=== PATIENT | male | born 1940 | race Caucasian/White ===

== ENCOUNTER 2020-02-04 00:28 | Emergency (ER) | payer MEDICARE, MEDICAID ==
[~2020-02-04] VITALS: Ht 172.7 cm; Wt 105.2 kg
[~2020-02-04 00:28] MED LIST: AMA100C PO; ASPI-611 PO; ATOR20TA PO; CARBIDOPA/LEVODOPA; ESCI20TA29 PO; FAMO-1 PO; FLO0.4C PO; FLUT16SP2 NS; ISOS30TA9 PO; LEVO75TA57 PO; METF500T PO; NITR0.4T51 SL; VITC500T PO; [UNRECOGNIZED DRUG - CODE] PO
[2020-02-04 02:12] LABS: BASOPHILS % (AUTO) 0.7 % (0-1); EOSINOPHILS # (AUTO) 0.3 X10'3 (0-0.9); EOSINOPHILS % (AUTO) 4.4 % (0-6); HEMOGLOBIN 13.3 g/dl (14.0-17.9); LYMPHOCYTES # (AUTO) 1.5 X10'3 (1.1-4.8); LYMPHOCYTES % (AUTO) 22.2 % (21-51); MEAN CORPUSCULAR HEMOGLOBIN 30.5 PG (27.0-31.0); MEAN CORPUSCULAR HGB CONC 34.2 g/dL (33.0-36.5); MEAN CORPUSCULAR VOLUME 89.2 FL (78-98); MEAN PLATELET VOLUME 9.3 FL (7.4-10.4); MONOCYTES # (AUTO) 0.4 X10'3 (0-0.9); MONOCYTES % (AUTO) 6.4 % (2-12); NEUTROPHILS # (AUTO) 4.6 X10'3 (1.8-7.7); NEUTROPHILS % (AUTO) 66.3 % (42-75); PLATELET COUNT 179 X10'3 (140-440); RED BLOOD COUNT 4.38 X10'6 (4.70-6.10); WHITE BLOOD COUNT 6.9 X10'3 (4.5-11.0)
[2020-02-04 02:19] LABS: ALANINE AMINOTRANSFERASE 51 U/L (12-78); ALBUMIN 3.1 G/DL (3.4-5.0); ALBUMIN/GLOBULIN RATIO 0.9 (1.1-1.5); ALKALINE PHOSPHATASE 90 IU/L (46-116); ANION GAP 11 (8-16); ASPARTATE AMINO TRANSFERASE 25 U/L (10-37); BILIRUBIN,TOTAL 0.3 MG/DL (0.1-1.0); BLOOD UREA NITROGEN 12 MG/DL (7-18); BUN/CREATININE RATIO 13.5 (5.4-32.0); CALCIUM 8.6 MG/DL (8.5-10.1); CHLORIDE 107 MMOL/L (99-107); CREATININE 0.89 MG/DL (0.60-1.10); GLUCOSE 142 MG/DL (70-104); POTASSIUM 3.5 MMOL/L (3.5-5.1); SODIUM 141 MMOL/L (135-145); TOTAL CARBON DIOXIDE 23.2 MMOL/L (24-32); TOTAL PROTEIN 6.5 G/DL (6.4-8.2); eGFR 83 ML/MIN
[2020-02-04 02:58] VITALS: BP 131/72
== END 2020-02-04 03:16 | disposition home or self-care (01) ==
LOC: ER 00:29
DX: R42 Dizziness and giddiness (principal); G20 Parkinson's disease; I48.91 Unspecified atrial fibrillation; E11.9 Type 2 diabetes mellitus without complications; E03.9 Hypothyroidism, unspecified; F41.9 Anxiety disorder, unspecified; F20.9 Schizophrenia, unspecified; Z98.890 Other specified postprocedural states; Z88.8 Allergy status to other drugs, medicaments and biological substances; Z79.82 Long term (current) use of aspirin; Z79.899 Other long term (current) drug therapy
CPT/HCPCS: 36415; 80053; 84484; 85025; 93005; 99284

== ENCOUNTER 2021-02-25 05:52 | Emergency (ER) | payer MEDICARE, MEDICAID ==
[~2021-02-25] VITALS: Ht 172.7 cm; Wt 98.4 kg
[2021-02-25 06:11] VITALS: BP 140/70
[2021-02-25 08:15] LABS: BASOPHILS % (AUTO) 0.4 % (0-1); EOSINOPHILS # (AUTO) 0.1 X10'3 (0-0.9); EOSINOPHILS % (AUTO) 1.6 % (0-6); HEMATOCRIT 42.4 % (42.0-52.0); HEMOGLOBIN 14.7 g/dl (14.0-17.9); LYMPHOCYTES # (AUTO) 1.5 X10'3 (1.1-4.8); LYMPHOCYTES % (AUTO) 20.8 % (21-51); MEAN CORPUSCULAR HEMOGLOBIN 31.1 PG (27.0-31.0); MEAN CORPUSCULAR HGB CONC 34.6 g/dL (33.0-36.5); MEAN CORPUSCULAR VOLUME 89.8 FL (78-98); MEAN PLATELET VOLUME 8.4 FL (7.4-10.4); MONOCYTES # (AUTO) 0.5 X10'3 (0-0.9); MONOCYTES % (AUTO) 7.3 % (2-12); NEUTROPHILS # (AUTO) 5.1 X10'3 (1.8-7.7); NEUTROPHILS % (AUTO) 69.9 % (42-75); PLATELET COUNT 177 X10'3 (140-440); RED BLOOD COUNT 4.72 X10'6 (4.70-6.10); RED CELL DISTRIBUTION WIDTH 15.4 % (11.5-14.5); WHITE BLOOD COUNT 7.3 X10'3 (4.5-11.0)
[2021-02-25 08:29] LABS: ALANINE AMINOTRANSFERASE 32 U/L (12-78); ALBUMIN 3.5 G/DL (3.4-5.0); ALBUMIN/GLOBULIN RATIO 0.9 (1.1-1.5); ALKALINE PHOSPHATASE 94 IU/L (46-116); ANION GAP 8 (8-16); ASPARTATE AMINO TRANSFERASE 23 U/L (10-37); BILIRUBIN,TOTAL 0.5 MG/DL (0.1-1.0); BLOOD UREA NITROGEN 20 MG/DL (7-18); BUN/CREATININE RATIO 22.7 (5.4-32.0); CALCIUM 9.9 MG/DL (8.5-10.1); CHLORIDE 108 MMOL/L (99-107); CREATININE 0.88 MG/DL (0.60-1.10); GLUCOSE 108 MG/DL (70-104); POTASSIUM 4.3 MMOL/L (3.5-5.1); SODIUM 144 MMOL/L (135-145); TOTAL CARBON DIOXIDE 28.1 MMOL/L (24-32); TOTAL PROTEIN 7.3 G/DL (6.4-8.2); eGFR 84 ML/MIN
[2021-02-25 09:26] LABS: TOTAL CELLS COUNTED 100
[2021-02-25 09:27] LABS: ANISOCYTOSIS FEW; PLATELET ESTIMATE NORMAL; POIKILOCYTOSIS FEW
[2021-02-25] MEDS ORDERED: ESOM40CA49 PO (17:53)
[2021-02-25] MEDS ORDERED: PROC-8 PO (17:53)
== END 2021-02-25 13:09 | disposition left against medical advice (07) ==
LOC: ER 05:54
DX: R07.9 Chest pain, unspecified (principal); Z53.21 Procedure and treatment not carried out due to patient leaving prior to being seen by health care provider
CPT/HCPCS: 36415; 71045; 80053; 83880; 84484; 85007; 85025; 93005

== ENCOUNTER 2021-02-25 16:27 | Emergency (ER) | payer MEDICARE, MEDICAID ==
[~2021-02-25] VITALS: Ht 172.7 cm; Wt 98.6 kg
[2021-02-25] MEDS ORDERED: ondansetron 4mg rapidly disintigrating tab PO ONE (16:45)
[2021-02-25] MEDS ORDERED: pantoprazole 40mg Tablet.DR PO ONE (16:45)
[2021-02-25 17:06] VITALS: BP 144/73
[2021-02-25 17:14] LABS: BASOPHILS % (AUTO) 0.5 % (0-1); EOSINOPHILS # (AUTO) 0.1 X10'3 (0-0.9); EOSINOPHILS % (AUTO) 1.5 % (0-6); HEMATOCRIT 42.6 % (42.0-52.0); HEMOGLOBIN 15.1 g/dl (14.0-17.9); LYMPHOCYTES # (AUTO) 1.9 X10'3 (1.1-4.8); LYMPHOCYTES % (AUTO) 24.2 % (21-51); MEAN CORPUSCULAR HEMOGLOBIN 31.5 PG (27.0-31.0); MEAN CORPUSCULAR HGB CONC 35.3 g/dL (33.0-36.5); MEAN CORPUSCULAR VOLUME 89.2 FL (78-98); MEAN PLATELET VOLUME 8.4 FL (7.4-10.4); MONOCYTES # (AUTO) 0.5 X10'3 (0-0.9); MONOCYTES % (AUTO) 6.8 % (2-12); NEUTROPHILS # (AUTO) 5.2 X10'3 (1.8-7.7); PLATELET COUNT 195 X10'3 (140-440); RED BLOOD COUNT 4.78 X10'6 (4.70-6.10); RED CELL DISTRIBUTION WIDTH 15.6 % (11.5-14.5); WHITE BLOOD COUNT 7.8 X10'3 (4.5-11.0)
[2021-02-25 17:23] LABS: ALANINE AMINOTRANSFERASE 32 U/L (12-78); ALBUMIN 3.4 G/DL (3.4-5.0); ALBUMIN/GLOBULIN RATIO 0.9 (1.1-1.5); ALKALINE PHOSPHATASE 104 IU/L (46-116); ANION GAP 8 (8-16); ASPARTATE AMINO TRANSFERASE 16 U/L (10-37); BILIRUBIN,TOTAL 0.4 MG/DL (0.1-1.0); BLOOD UREA NITROGEN 17 MG/DL (7-18); BUN/CREATININE RATIO 20.5 (5.4-32.0); CALCIUM 9.4 MG/DL (8.5-10.1); CHLORIDE 108 MMOL/L (99-107); CREATININE 0.83 MG/DL (0.60-1.10); GLUCOSE 125 MG/DL (70-104); POTASSIUM 3.5 MMOL/L (3.5-5.1); SODIUM 146 MMOL/L (135-145); TOTAL CARBON DIOXIDE 29.8 MMOL/L (24-32); TOTAL PROTEIN 7.4 G/DL (6.4-8.2); eGFR 90 ML/MIN
[2021-02-25] MEDS ORDERED: ESOM40CA49 PO (17:53)
[2021-02-25] MEDS ORDERED: PROC-8 PO (17:53)
== END 2021-02-25 18:12 | disposition home or self-care (01) ==
LOC: ER 16:29
DX: R10.13 Epigastric pain (principal); R14.3 Flatulence; R14.2 Eructation; K21.9 Gastro-esophageal reflux disease without esophagitis; I48.91 Unspecified atrial fibrillation; G89.29 Other chronic pain; G20 Parkinson's disease; E11.9 Type 2 diabetes mellitus without complications; E03.9 Hypothyroidism, unspecified; Z95.9 Presence of cardiac and vascular implant and graft, unspecified; Z98.890 Other specified postprocedural states; Z79.82 Long term (current) use of aspirin; Z79.899 Other long term (current) drug therapy; Z88.8 Allergy status to other drugs, medicaments and biological substances
CPT/HCPCS: 36415; 71045; 80053; 84484; 85025; 93005; 99285

== ENCOUNTER 2021-11-30 19:02 | Emergency (ER) | payer MEDICARE, MEDICAID ==
[~2021-11-30] VITALS: Ht 172.7 cm; Wt 98.6 kg
[~2021-11-30 19:02] MED LIST changes: +ESOM40CA49 PO; +PROC-8 PO
[2021-11-30 19:06] VITALS: BP 144/67
[2021-11-30 20:09] LABS: BASOPHILS % (AUTO) 0.5 % (0-1); EOSINOPHILS # (AUTO) 0.2 X10'3 (0-0.9); EOSINOPHILS % (AUTO) 1.9 % (0-6); HEMATOCRIT 39.7 % (42.0-52.0); HEMOGLOBIN 14.2 g/dl (14.0-17.9); LYMPHOCYTES # (AUTO) 1.5 X10'3 (1.1-4.8); LYMPHOCYTES % (AUTO) 18.2 % (21-51); MEAN CORPUSCULAR HEMOGLOBIN 30.7 PG (27.0-31.0); MEAN CORPUSCULAR HGB CONC 35.7 g/dL (33.0-36.5); MEAN CORPUSCULAR VOLUME 85.8 FL (78-98); MEAN PLATELET VOLUME 8.6 FL (7.4-10.4); MONOCYTES # (AUTO) 0.6 X10'3 (0-0.9); MONOCYTES % (AUTO) 7.4 % (2-12); PLATELET COUNT 190 X10'3 (140-440); RED BLOOD COUNT 4.63 X10'6 (4.70-6.10); WHITE BLOOD COUNT 8.3 X10'3 (4.5-11.0)
[2021-11-30 20:15] LABS: ALANINE AMINOTRANSFERASE 29 U/L (12-78); ALBUMIN 3.6 G/DL (3.4-5.0); ALBUMIN/GLOBULIN RATIO 0.9 (1.1-1.5); ALKALINE PHOSPHATASE 98 IU/L (46-116); ANION GAP 12 (8-16); ASPARTATE AMINO TRANSFERASE 14 U/L (10-37); BILIRUBIN,TOTAL 0.5 MG/DL (0.1-1.0); BLOOD UREA NITROGEN 17 MG/DL (7-18); BUN/CREATININE RATIO 16.7 (5.4-32.0); CALCIUM 8.8 MG/DL (8.5-10.1); CHLORIDE 101 MMOL/L (99-107); CREATININE 1.02 MG/DL (0.60-1.10); GLUCOSE 387 MG/DL (70-104); POTASSIUM 4.1 MMOL/L (3.5-5.1); SODIUM 138 MMOL/L (135-145); TOTAL CARBON DIOXIDE 24.9 MMOL/L (24-32); TOTAL PROTEIN 7.5 G/DL (6.4-8.2); eGFR 70 ML/MIN
[2021-11-30] MEDS ORDERED: NYST15CR36 TOP (23:31)
[2021-12-01 11:42] LABS: OCCULT BLOOD STOOL NEGATIVE (Neg)
== END 2021-11-30 23:47 | disposition home or self-care (01) ==
LOC: ER 19:02
DX: B37.9 Candidiasis, unspecified (principal); K92.2 Gastrointestinal hemorrhage, unspecified; I48.91 Unspecified atrial fibrillation; I10 Essential (primary) hypertension; K21.9 Gastro-esophageal reflux disease without esophagitis; E11.9 Type 2 diabetes mellitus without complications; E03.9 Hypothyroidism, unspecified; F41.9 Anxiety disorder, unspecified; F20.9 Schizophrenia, unspecified; Z85.9 Personal history of malignant neoplasm, unspecified; Z98.890 Other specified postprocedural states; Z88.8 Allergy status to other drugs, medicaments and biological substances; Z79.82 Long term (current) use of aspirin; Z79.899 Other long term (current) drug therapy
CPT/HCPCS: 36415; 80053; 82272; 85025; 99283

== ENCOUNTER 2022-11-21 05:15 | Emergency (ER) | payer MEDICARE, MEDICAID ==
[~2022-11-21] VITALS: Ht 174 cm; Wt 90.9 kg
[~2022-11-21 05:15] MED LIST changes: +NYST15CR36 TOP
[2022-11-21 05:26] VITALS: BP 149/76; PULSE 79; RESP 18; TEMP 97.1; O2SAT 94
[2022-11-21] MEDS ORDERED: mag hydrox/Alum hydrox/simeth 30ml oral suspension PO ONE (05:30)
[2022-11-21] MEDS ORDERED: famotidine/PF 10 mg/ml inj IV ONE (05:30)
[2022-11-21] MEDS ORDERED: LIDOcaine Viscous 15ml cup MM ONE (05:30)
[2022-11-21 06:09] LABS: BASOPHILS % (AUTO) 0.4 % (0-1); EOSINOPHILS # (AUTO) 0.1 X10'3 (0-0.9); HEMATOCRIT 41.8 % (42.0-52.0); HEMOGLOBIN 14.3 g/dl (14.0-17.9); LYMPHOCYTES # (AUTO) 1.4 X10'3 (1.1-4.8); LYMPHOCYTES % (AUTO) 16.5 % (21-51); MEAN CORPUSCULAR HEMOGLOBIN 30.8 PG (27.0-31.0); MEAN CORPUSCULAR HGB CONC 34.2 g/dL (33.0-36.5); MEAN CORPUSCULAR VOLUME 90.2 FL (78-98); MEAN PLATELET VOLUME 8.5 FL (7.4-10.4); MONOCYTES # (AUTO) 0.6 X10'3 (0-0.9); MONOCYTES % (AUTO) 7.1 % (2-12); NEUTROPHILS # (AUTO) 6.2 X10'3 (1.8-7.7); PLATELET COUNT 160 X10'3 (140-440); RED BLOOD COUNT 4.64 X10'6 (4.70-6.10); WHITE BLOOD COUNT 8.3 X10'3 (4.5-11.0)
[2022-11-21 06:14] LABS: PROTHROMBIN TIME 9.8 SECONDS (9.0-12.0)
[2022-11-21 06:19] LABS: INR 0.9 INR
[2022-11-21 06:26] LABS: ALANINE AMINOTRANSFERASE 28 U/L (12-78); ALBUMIN 3.2 G/DL (3.4-5.0); ALBUMIN/GLOBULIN RATIO 0.9 (1.1-1.5); ALKALINE PHOSPHATASE 87 IU/L (46-116); ANION GAP 8 (8-16); ASPARTATE AMINO TRANSFERASE 18 U/L (10-37); BILIRUBIN,TOTAL 0.3 MG/DL (0.1-1.0); BLOOD UREA NITROGEN 20 MG/DL (7-18); BUN/CREATININE RATIO 32.8 (10.0-20.0); CHLORIDE 108 MMOL/L (99-107); CREATININE 0.61 MG/DL (0.60-1.10); GLUCOSE 152 MG/DL (70-104); LIPASE 816 U/L (73-393); POTASSIUM 3.3 MMOL/L (3.5-5.1); PRO BRAIN NATRIURETIC PEPTIDE 133 PG/ML (0-450); SODIUM 141 MMOL/L (135-145); TOTAL CARBON DIOXIDE 24.6 MMOL/L (24-32); TOTAL PROTEIN 6.7 G/DL (6.4-8.2); eCRCL 95 ML/MIN; eGFR > 90 ML/MIN
[2022-11-21 06:32] LABS: CALCIUM 8.8 MG/DL (8.5-10.1)
[2022-11-21] MEDS ORDERED: normal saline 1000ml 1,000 ML IV SCH (07:00)
[2022-11-21] MEDS ORDERED: iohexol 300mg/ml 100ml inj. ONE (07:42)
[2022-11-21 08:52] LABS: TOTAL CELLS COUNTED 100
[2022-11-21 08:53] LABS: PLATELET ESTIMATE NORMAL
[2022-11-21] MEDS ORDERED: PANT-47 PO (09:26)
[2022-11-22] MEDS ORDERED: MESSAGE TO NURSING IV SCH (08:00)
== END 2022-11-21 09:44 | disposition home or self-care (01) ==
LOC: ER 05:15
DX: R11.2 Nausea with vomiting, unspecified (principal); R10.9 Unspecified abdominal pain; I10 Essential (primary) hypertension; K21.9 Gastro-esophageal reflux disease without esophagitis; E03.9 Hypothyroidism, unspecified; F31.9 Bipolar disorder, unspecified; F20.9 Schizophrenia, unspecified; Z88.8 Allergy status to other drugs, medicaments and biological substances; Z79.899 Other long term (current) drug therapy; Z88.6 Allergy status to analgesic agent
CPT/HCPCS: 36415; 71045; 74177; 80053; 83690; 83880; 84484; 85007; 85025; 85610; 93005; 96374; 99285; J3490; J7030; Q9967

== ENCOUNTER 2022-12-23 01:02 | Emergency (ER) | payer MEDICARE, MEDICAID ==
[~2022-12-23] VITALS: Ht 172.7 cm; Wt 90.9 kg
[~2022-12-23 01:02] MED LIST changes: +PANT-47 PO
[2022-12-23 02:24] VITALS: BP 166/86; PULSE 77; RESP 17; TEMP 97.6; O2SAT 95
== END 2022-12-23 05:18 | disposition left against medical advice (07) ==
LOC: ER 01:03
DX: K21.9 Gastro-esophageal reflux disease without esophagitis (principal); Z53.21 Procedure and treatment not carried out due to patient leaving prior to being seen by health care provider
CPT/HCPCS: 99281

== ENCOUNTER 2024-01-05 02:49 | Emergency (ER) | payer MEDICARE, MEDICAID ==
[~2024-01-05] VITALS: Ht 172.7 cm; Wt 92.4 kg
[2024-01-05 02:53] VITALS: TEMP 98.1
[2024-01-05] MEDS: mag hydrox/Alum hydrox/simeth 30ml oral suspension PO ONE (03:14)
[2024-01-05 04:17] LABS: BASOPHILS % (AUTO) 0.6 % (0-1); EOSINOPHILS # (AUTO) 0.1 X10'3 (0-0.9); EOSINOPHILS % (AUTO) 2.1 % (0-6); HEMATOCRIT 39.1 % (42.0-52.0); HEMOGLOBIN 13.2 g/dl (14.0-17.9); LYMPHOCYTES # (AUTO) 1.5 X10'3 (1.1-4.8); LYMPHOCYTES % (AUTO) 22.5 % (21-51); MEAN CORPUSCULAR HEMOGLOBIN 29.8 PG (27.0-31.0); MEAN CORPUSCULAR HGB CONC 33.7 g/dL (33.0-36.5); MEAN CORPUSCULAR VOLUME 88.5 FL (78-98); MEAN PLATELET VOLUME 8.9 FL (7.4-10.4); MONOCYTES # (AUTO) 0.5 X10'3 (0-0.9); MONOCYTES % (AUTO) 8.3 % (2-12); NEUTROPHILS # (AUTO) 4.4 X10'3 (1.8-7.7); NEUTROPHILS % (AUTO) 66.5 % (42-75); PLATELET COUNT 175 X10'3 (140-440); RED BLOOD COUNT 4.42 X10'6 (4.70-6.10); RED CELL DISTRIBUTION WIDTH 16.6 % (11.5-14.5); WHITE BLOOD COUNT 6.6 X10'3 (4.5-11.0)
[2024-01-05 04:33] LABS: ALANINE AMINOTRANSFERASE 21 U/L (12-78); ALBUMIN 2.9 G/DL (3.4-5.0); ALBUMIN/GLOBULIN RATIO 0.9 (1.1-1.5); ALKALINE PHOSPHATASE 88 IU/L (46-116); ANION GAP 7 (8-16); ASPARTATE AMINO TRANSFERASE 13 U/L (10-37); BILIRUBIN,TOTAL 0.4 MG/DL (0.1-1.0); BLOOD UREA NITROGEN 18 MG/DL (7-18); CALCIUM 8.3 MG/DL (8.5-10.1); CHLORIDE 111 MMOL/L (99-107); GLUCOSE 120 MG/DL (70-104); POTASSIUM 3.4 MMOL/L (3.5-5.1); SODIUM 143 MMOL/L (135-145); TOTAL CARBON DIOXIDE 24.8 MMOL/L (24-32); eCRCL 93 ML/MIN; eGFR > 90 ML/MIN
[2024-01-05 04:40] LABS: PRO BRAIN NATRIURETIC PEPTIDE 254 PG/ML (0-450)
[2024-01-05 04:41] LABS: TOTAL CELLS COUNTED 100
[2024-01-05 04:42] LABS: BURR CELLS FEW; PLATELET ESTIMATE NORMAL
[2024-01-05 04:50] VITALS: BP 138/63; PULSE 56; RESP 17; O2SAT 95
[2024-01-05] MEDS: azithromycin 250mg tablet PO ONE (05:07)
[2024-01-05] MEDS ORDERED: AZIT-164 PO (05:11)
== END 2024-01-05 05:17 | disposition home or self-care (01) ==
LOC: ER 02:49
DX: J16.8 Pneumonia due to other specified infectious organisms (principal); K29.60 Other gastritis without bleeding; I48.91 Unspecified atrial fibrillation; I10 Essential (primary) hypertension; K21.9 Gastro-esophageal reflux disease without esophagitis; E03.9 Hypothyroidism, unspecified; F41.9 Anxiety disorder, unspecified; F20.9 Schizophrenia, unspecified; G20.A1 Parkinson's disease without dyskinesia, without mention of fluctuations; K44.9 Diaphragmatic hernia without obstruction or gangrene; Z88.8 Allergy status to other drugs, medicaments and biological substances; Z79.899 Other long term (current) drug therapy; Z79.82 Long term (current) use of aspirin; Z79.51 Long term (current) use of inhaled steroids; Z79.84 Long term (current) use of oral hypoglycemic drugs; Z98.890 Other specified postprocedural states; Z85.89 Personal history of malignant neoplasm of other organs and systems
CPT/HCPCS: 36415; 71045; 80053; 83880; 84484; 85007; 85025; 93005; 99285

== ENCOUNTER 2025-03-01 14:20 | Emergency (ER) | payer MEDICARE, MEDICAID ==
[~2025-03-01] VITALS: Ht 175.3 cm; Wt 90.7 kg
[~2025-03-01 14:20] MED LIST changes: -FLO0.4C PO; +NYST15CR TOP; -NYST15CR36 TOP; +TAMS-55 PO
--- NOTE | 2025-03-01 14:49 | ELECTROCARDIOGRAPH REPORT ---
[facility] Test Date: 2025-03-01 Test Time: 14:30:59 Pat Name: GEORGI PERSON Department: EMERGENCY ROOM Room: Gender: M Finance Mgr: BRANDI : 1940 Requested By: JACQUELYN KEBEDE Order Number: [id number] Reading MD: Dr. JOSETTE Danielle Measurements Intervals [place] Rate: 73 P: 81 CO: 158 QRS: -26 QRSD: 138 T: 42 QT: 414 QTc: 457 Interpretive Statements Sinus rhythm Left bundle branch block Baseline wander in lead(s) I,III,aVL Electronically Signed On 03-02-2025 17:17:[address] JOSETTE Danielle Please click the below link to view image of tracing.
[2025-03-01 15:03] LABS: MEAN PLATELET VOLUME 8.8 FL (7.4-10.4); RED CELL DISTRIBUTION WIDTH 16.7 % (11.5-14.5)
--- NOTE | 2025-03-01 15:10 | RADIOLOGY REPORT ---
EXAM: DI CHEST,SINGLE VIEW HISTORY: Chest pain TECHNIQUE: 1 view of the chest COMPARISON: DI CHEST,SINGLE VIEW on DOS: 01/05/24 FINDINGS/IMPRESSION: LUNGS: No pleural effusion, consolidation, or pneumothorax. MEDIASTINUM: Unremarkable. BONES: No acute osseous abnormality. OTHER: None.
[2025-03-01 15:25] LABS: CREATININE 0.56 MG/DL (0.60-1.10); PRO BRAIN NATRIURETIC PEPTIDE 275 PG/ML (0-450); TOTAL CARBON DIOXIDE 28.7 MMOL/L (24-32); eCRCL 102 ML/MIN; eGFR > 90 ML/MIN
--- NOTE | 2025-03-01 15:38 | Physician Documentation ---
History of Present Illness ~ Chief Complaint: Shortness of Breath Stated Complaint: DIZZINESS/SOB Time Seen by MD: 15:05 Primary Medical Doctor: Augustina ROJAS This 84-year-old male presents to the ED with a complaint of two weeks of shortness of breath with activity level he states he has never been a smoker never been diagnosed with COPD but does have a history of asthma. He denies any history of CHF. According to his medical records he does have hypertension and type 2 diabetes Denies any chest pain but reports intermittent dizziness. This is not normal for the patient. Denies any recent falls or head strikes. Denies any acute cough denies any nausea vomiting Medication Reconciliation Allergies: Coded Allergies: benztropine mesylate (Verified Allergy, Unknown, 03/01/25) bupropion HCl (Verified Allergy, Unknown, 03/01/25) quetiapine fumarate (Verified Allergy, Unknown, 03/01/25) Scheduled Amantadine Hcl* (Symmetrel*), 1 TAB PO BID, (Reported) Ascorbic Acid* (Vitamin C*), 1 TAB PO DAILY, (Reported) Aspirin (Aspir 81), 81 MG PO HS, (Reported) Atorvastatin Calcium* (Lipitor*), 20 MG PO HS, (Reported) Docusate Sodium (Docusate Sodium), 1 CAP PO BID, (Reported) Escitalopram Oxalate* (Lexapro*), 10 MG PO DAILY, (Reported) Esomeprazole Magnesium (Nexium), 1 CAP PO DAILY Famotidine* (Pepcid*), 40 MG PO DAILY, (Reported) Fluticasone Propionate (Flonase), 16 GM NS DAILY, (Reported) Isosorbide Dinitrate* (Isordil*), 30 MG PO DAILY, (Reported) Levothyroxine Sodium* (Levoxyl*), 1 TAB PO DAILY, (Reported) Metformin Hcl* (Glucophage*), 500 MG PO BID, (Reported) Nystatin (Nystatin), 1 APPLIC TOP Q12H Pantoprazole Sodium (PROTONIX tablet), 40 MG PO DAILY Tamsulosin Hcl* (Flomax*), 0.4 MG PO DAILY Scheduled PRN Nitroglycerin SL* (Nitrostat SL*), 0.4 MG SL Q5MIN PRN, (Reported) Prochlorperazine Maleate (Compazine), 1 TAB PO QID PRN PRN for nausea/vomiting albuterol inhaler (Pro-Air Inhaler), 2 PUFFS INH Q4HPRN PRN for wheezing Miscellaneous Medications [Carbidopa/Levodopa], (Reported) Past Medical History Past Medical History: Parkinson's Disease, Atrial Fibrillation, Hypertension, GERD, Hernia, Diabetes, Hypothyroidism, *CANCER*, Anxiety, Schizophrenia Past Surgical History: abdominal surgery, other Other Past Surgical History: heart ablation in 2013 for Afib Alcohol Use: None Lives with: S/O Lives In: Home Review of Systems All Other Systems at this time: Reviewed and Negative ROS As stated above in the HPI, otherwise all systems are reviewed and negative. Physical Exam Vital Signs: Temperature: 97.0, Heart Rate: 64, Respiratory Rate: 10, BP: 159/66, Pulse Oximetry: 97, Weight: 90.700 Oxygen Flow Rate: 0 Physical Exam General: Alert, no apparent distress. HEENT: PERRL, EOMI, no injection, moist mucous membranes. Neck: Full range of motion. Respiratory: Lungs clear, no respiratory distress. Chest: No accessory muscle use. Cardiovascular: Regular rate and rhythm, no murmurs. Gastrointestinal: Soft, nontender, nondistended. Bowels sounds present. Extremities: Normal range of motion, no deformity. Neurologic: Oriented x4. Psychiatric: Normal mood and affect. Skin: Normal color, warm and dry. No edema, no ecchymosis. Progress Results/Orders Results/Orders Orders - DHIRAJ ASTORGA INSURANCE LEGAL ASSISTANT Svn Treatment (03/01/25 ) Ct Head (03/01/25 15:40) Completed Orders - DHIRAJ ASTORGA INSURANCE LEGAL ASSISTANT Ipratropium/Albuterol Nebule (Ipratrop/A (03/01/25 15:30) Ct Head (03/01/25 15:40) Ua With Microscopic (03/01/25 16:49) Medications Received in ER Medications (Trade) Dose Ordered Sig/Arin Route PRN Reason Start Time Stop Time Status Last Admin Dose Admin (ipratrop/ albuterol 0.5-3(2.5) MG/3ml nebule) 3 ml ONCE ONCE NEB 03/01/25 15:30 03/01/25 15:31 DC 03/01/25 16:10 3 ML Vital Signs 03/01/25 03/01/25 03/01/25 03/01/25 14:41 15:25 16:12 16:17 Temp 97.0 97.0 Pulse 68 64 62 68 Resp 12 10 16 16 B/P (MAP) 128/89 159/66 (97) Pulse Ox 97 97 98 98 O2 Delivery Room Air* Room Air* O2 Flow Rate 0 0 0 FiO2 21 21 03/01/25 17:00 B/P (MAP) Laboratory Tests Test 03/01/25 14:31 03/01/25 16:49 03/01/25 16:56 White Blood Count 6.5 Red Blood Count 4.78 Hemoglobin 14.5 Hematocrit 43.0 Mean Corpuscular Volume 89.9 Mean Corpuscular Hemoglobin 30.3 Mean Corpuscular Hemoglobin Concent 33.7 Red Cell Distribution Width 16.7 H Platelet Count 179 Mean Platelet Volume 8.8 Neutrophils (%) (Auto) 71.0 Lymphocytes (%) (Auto) 20.0 L Monocytes (%) (Auto) 7.1 Eosinophils (%) (Auto) 1.2 Basophils (%) (Auto) 0.7 Neutrophils # (Auto) 4.6 Lymphocytes # (Auto) 1.3 Monocytes # (Auto) 0.5 Eosinophils # (Auto) 0.1 Basophils # (Auto) 0.0 CBC Comment Sodium Level 142 Potassium Level 3.6 Chloride Level 106 Carbon Dioxide Level 28.7 Anion Gap 7 L Blood Urea Nitrogen 15 Creatinine 0.56 L Estimated GFR/1.73 m2 > 90 BUN/Creatinine Ratio 26.8 H Glucose Level 107 H Calcium Level 8.8 Troponin I High Sensitivity 7 7 Pro-B-Type Natriuretic Peptide 275 Albumin 3.5 Chemistry Comments Urine Specimen Description Cln catch midstream Urine Color Yellow Urine Clarity Clear Urine pH 5.5 Urine Specific [place] 1.020 Urine Protein Negative Urine Glucose (UA) >=1000 H Urine Ketones 15 H Urine Occult Blood Negative Urine Nitrite Negative Urine Bilirubin Negative Urine Urobilinogen 0.2 Urine Leukocyte Esterase Negative Urine RBC None seen Urine WBC 0-4 Urine Squamous Epithelial Cells None seen Urine Bacteria None seen Volume Urine Centrifuged 10 ml Urine Comment Troponin I High Sens Percent Delta 0 Troponin I Hi Sens Absolute Change 0 Medical Decision Making Additional information obtaine: old records Findings This patient was fully evaluated using CT EKG x-ray and laboratory values. His complaint of dizziness was initially concerning however via CT able to rule out any brain bleeds or intracranial abnormalities. His chest x-ray per my interpretation shows no signs of vascular congestion or opacities. EKG was unremarkable for any ST elevations axis deviation and was in normal sinus rhythm UA was unremarkable for any urinalysis which could be contributing to dizziness Patient reported improved symptoms after SVN treat Heart Score: 4 Differential Dx:Considerations: Include: anxiety, asthma, bronchitis, cardiogenic shock, CHF, COPD, dysrhythmia, hypertension, accelerated, hypertension, essential, hypertension, malignant, hyperventilation, hyponatremia, myocardial infarction, panic attack, pneumonia, pneumonitis, pneumothorax, PSVT, pulmonary embolism, respiratory distress, respiratory fa ilure, sinusitis, upper resp. infection, other Departure Disposition: HOME / SELF CARE / HOMELESS Impression: Primary Impression: Chronic obstructive pulmonary disease Additional Impressions: Diabetes mellitus type 2 dizziness, chronic Condition: Stable Discharge Instructions: Asthma, Adult, [id number] Referrals: NO PRIMARY CARE PROVIDER (PCP) Prescriptions albuterol inhaler (Pro-Air Inhaler) 8.5 Gm Inhaler 2 PUFFS INH Q4HPRN PRN for wheezing for 30 Days, #18 GM Prov: DHIRAJ ASTORGA NP 03/01/25 Signature Scribe Signature: h Attestation: Scribed for Dhiraj Astorga Business Continuity Planning Director by Dhiraj Astorga - NOE . 03/01/25 15:40 DHIRAJ ASTORGA NP Mar 01, 2025 15:38
--- NOTE | 2025-03-01 16:04 | RADIOLOGY REPORT ---
CT CT HEAD INDICATION: dizzy COMPARISON: None TECHNIQUE: CT of the head without intravenous contrast. RADIATION DOSE: CTDIvol: 58.49 mGy, DLP: 1100.06 mGy*cm FINDINGS: There is no evidence of acute intracranial hemorrhage, extra-axial collection, mass effect, midline shift, herniation or hydrocephalus. The ventricles, sulci and cisterns are age appropriate. The jenkins-white differentiation is intact. The visualized paranasal sinuses and mastoid air cells are clear. The surrounding soft tissues and osseous structures are unremarkable. IMPRESSION: No evidence of acute intracranial hemorrhage, mass effect or hydrocephalus.
[2025-03-01] MEDS: ipratropium/albuterol 3ml nebule NEB ONE (16:10)
[2025-03-01 16:12] VITALS: PULSE 62; RESP 16; O2SAT 98
[2025-03-01 16:17] VITALS: PULSE 68; RESP 16; O2SAT 98
[2025-03-01 17:08] LABS: LEUKOCYTE ESTERASE ,URINE NEGATIVE (Neg); NITRITES, URINE NEGATIVE (Neg); OCCULT BLOOD,URINE NEGATIVE (Neg)
[2025-03-01 17:09] LABS: UA COLLECTION TYPE CLN CATCH MIDSTREAM
[2025-03-01 17:26] LABS: SQUAMOUS EPITHELIAL CELL,UR NONE SEEN /LPF (FEW)
[2025-03-01] MEDS ORDERED: ALBU8HFA INH (17:37)
[2025-03-01 18:10] VITALS: BP 138/69; PULSE 69; RESP 13; TEMP 97; O2SAT 97
== END 2025-03-01 18:00 | disposition home or self-care (01) ==
LOC: ER 14:21
DX: J44.9 Chronic obstructive pulmonary disease, unspecified (principal); E11.9 Type 2 diabetes mellitus without complications; R42 Dizziness and giddiness; F20.9 Schizophrenia, unspecified; E03.9 Hypothyroidism, unspecified; I10 Essential (primary) hypertension; K21.9 Gastro-esophageal reflux disease without esophagitis; F41.9 Anxiety disorder, unspecified; I48.91 Unspecified atrial fibrillation; Z88.8 Allergy status to other drugs, medicaments and biological substances; Z79.82 Long term (current) use of aspirin; Z79.899 Other long term (current) drug therapy
CPT/HCPCS: 36415; 70450; 71045; 80048; 81001; 83880; 84484; 85025; 93005; 94640; 94760; 99285

== ENCOUNTER 2025-03-16 05:57 | Emergency (ER) | payer MEDICARE, MEDICAID ==
[~2025-03-16] VITALS: Ht 172.7 cm; Wt 93.1 kg
[~2025-03-16 05:57] MED LIST changes: +ALBU8HFA INH
[2025-03-16 06:17] VITALS: BP 127/58; PULSE 91; RESP 12; TEMP 99.1; O2SAT 93
[2025-03-16] MEDS: normal saline 1000ML IV soln IVB ONE (06:26)
--- NOTE | 2025-03-16 06:40 | Physician Documentation ---
History of Present Illness General Chief Complaint: Diarrhea Stated Complaint: BODY PAIN M BLS Time Seen by MD: 06:13 Primary Medical Doctor: Augustina PENA Mode of Arrival: EMS History of Present Illness Initial Comments 84-year-old male presents with diarrhea and lower abdominal discomfort. The patient states that he has had numbness in his lower extremities also has a frequent loose stools. The patient states he has had no loose stools today. States over the last few days he has had several loose stools. The patient states he has felt weak today and he has had some numbness that he states it is in his lower extremities. The patient also complains of some abdominal discomfort slight abdominal fullness. The patient called EMS to have him transported to the emergency department. The patient denies any fevers chills he states he is nauseous but has not vomited today. Medication Reconciliation Allergies: Coded Allergies: benztropine mesylate (Verified Allergy, Unknown, 03/16/25) bupropion HCl (Verified Allergy, Unknown, 03/16/25) quetiapine fumarate (Verified Allergy, Unknown, 03/16/25) Scheduled Acetaminophen (Tylenol Arthritis), 1 TAB PO Q12H, (Reported) Amantadine Hcl* (Symmetrel*), 1 TAB PO BID, (Reported) Ascorbic Acid* (Vitamin C*), 1 TAB PO DAILY, (Reported) Aspirin (Aspir 81), 81 MG PO HS, (Reported) Atorvastatin Calcium* (Lipitor*), 1 TAB PO DAILY, (Reported) Docusate Sodium (Docusate Sodium), 1 CAP PO BID, (Reported) Docusate Sodium (Colace), 1 CAP PO DAILY, (Reported) Empagliflozin (Jardiance), 1 TAB PO DAILY, (Reported) Escitalopram Oxalate* (Lexapro*), 10 MG PO DAILY, (Reported) Esomeprazole Magnesium (Nexium), 1 CAP PO DAILY Famotidine* (Pepcid*), 40 MG PO DAILY, (Reported) Fluticasone Propionate (Flonase), 16 GM NS DAILY, (Reported) Gabapentin (Gabapentin), 2 CAP PO BID, (Reported) Isosorbide Dinitrate* (Isordil*), 30 MG PO DAILY, (Reported) Levothyroxine Sodium* (Levoxyl*), 1 TAB PO DAILY, (Reported) Metformin Hcl* (Glucophage*), 500 MG PO BID, (Reported) Metoprolol Tartrate* (Lopressor tablet*), 12.5 MG PO DAILY, (Reported) Mirtazapine (Mirtazapine), 1 TAB PO HS, (Reported) Nystatin (Nystatin), 1 APPLIC TOP Q12H Omeprazole (Prilosec), 0.5 CAP PO DAILY, (Reported) Omeprazole (Omeprazole), 1 CAP PO DAILY, (Reported) Pantoprazole Sodium (PROTONIX tablet), 40 MG PO DAILY Potassium Chloride* (K-Dur*), 1 TAB PO BID Sucralfate (Sucralfate), 1 GM PO TID, (Reported) Tamsulosin Hcl* (Flomax*), 0.4 MG PO DAILY Scheduled PRN Albuterol Sulfate (Ventolin Hfa), 2 PUFFS INH Q4HPRN PRN for wheezing, (Reported) Nitroglycerin SL* (Nitrostat SL*), 0.4 MG SL Q5MIN PRN, (Reported) ONDANSETRON ODT 4mg tablet (Ondansetron Odt), 1 TABLET PO Q6H PRN for nausea/vomiting Prochlorperazine Maleate (Compazine), 1 TAB PO QID PRN PRN for nausea/vomiting albuterol inhaler (Pro-Air Inhaler), 2 PUFFS INH Q4HPRN PRN for wheezing Miscellaneous Medications [Carbidopa/Levodopa], (Reported) Discontinued Medications Atorvastatin Calcium* (Lipitor*), 20 MG PO HS, (Reported) Discontinued Reason: patient no longer taking Past Medical History Past Medical History: Parkinson's Disease, Atrial Fibrillation, Hypertension, GERD, Hernia, Diabetes, Hypothyroidism, *CANCER*, Anxiety, Schizophrenia Past Surgical History: abdominal surgery, other Other Past Surgical History: heart ablation in 2013 for Afib Smoking: Non-Smoker Alcohol Use: None Lives with: S/O Lives In: Home Review of Systems All Other Systems at this time: Reviewed and Negative Physical Exam Physical Exam Vital Signs: Temperature: 99.1, Source: Oral, Heart Rate: 91, Respiratory Rate: 12, BP: 127/58, Pulse Oximetry: 93, Weight: 93.100 Physical Exam VITALS: Reviewed and as above. GENERAL: Alert, no apparent distress. HEENT: Normocephalic, atraumatic, PERRL, EOMI, dry mucosa, no erythema RESPIRATORY: Lungs clear, normal breath sounds, no respiratory distress. CHEST: No accessory muscle use, no retractions CV: Regular rate, rhythm, no edema, no murmur, No: JVD GI: Soft, non-tender, bowels sounds present, no rebound, guarding, or rigidity BACK: No CVA tenderness, or swelling MUSCULOSKELETAL: No deformities, no edema SKIN: Warm and dry, no rash NEURO: Oriented x4, No motor or sensory deficit PSYCH: Normal mood and affect, no agitation Progress Results/Orders Results/Orders Orders - OHLJACQUELYN PEREZ MD Saline Lock (03/16/25 06:12) Covid19 Binax Poc Result Entry (03/16/25 06:26) Completed Orders - JACQUELYN CARR MD Cbc/Diff (03/16/25 06:12) Lipase (03/16/25 06:12) Normal Saline 1000ml (0.9% Sodium Chlori (03/16/25 06:15) CMP (03/16/25 06:12) Procalcitonin (03/16/25 06:12) Influenza Type A&B Rapid Test (03/16/25 06:30) Ua W/Microscopic, Cult If Ind (03/16/25 07:41) Potassium Cl Sr Tablet (K-Dur Tablet) (03/16/25 08:39) Vital Signs 03/16/25 03/16/25 03/16/25 06:03 06:17 06:19 Temp 99.1 99.1 Pulse 91 91 Resp 17 12 B/P (MAP) 147/62 127/58 (81) Pulse Ox 97 93 Laboratory Tests Test 03/16/25 06:20 03/16/25 06:30 03/16/25 07:41 White Blood Count 12.7 H Red Blood Count 4.68 L Hemoglobin 14.3 Hematocrit 41.2 L Mean Corpuscular Volume 88.0 Mean Corpuscular Hemoglobin 30.5 Mean Corpuscular Hemoglobin Concent 34.6 Red Cell Distribution Width 16.3 H Platelet Count 176 Mean Platelet Volume 8.4 Neutrophils (%) (Auto) 89.7 H Lymphocytes (%) (Auto) 4.7 L Monocytes (%) (Auto) 5.0 Eosinophils (%) (Auto) 0.3 Basophils (%) (Auto) 0.3 Neutrophils # (Auto) 11.4 H Lymphocytes # (Auto) 0.6 L Monocytes # (Auto) 0.6 Eosinophils # (Auto) 0.0 Basophils # (Auto) 0.0 CBC Comment Sodium Level 141 Potassium Level 3.2 L Chloride Level 106 Carbon Dioxide Level 27.6 Anion Gap 7 L Blood Urea Nitrogen 20 H Creatinine 0.71 Estimated GFR/1.73 m2 > 90 BUN/Creatinine Ratio 28.2 H Glucose Level 171 H Calcium Level 8.3 L Total Bilirubin 0.6 Aspartate Amino Transf (AST/SGOT) 22 Alanine Aminotransferase (ALT/SGPT) 31 Alkaline Phosphatase 103 Total Protein 7.1 Albumin 3.4 Globulin 3.7 Albumin/Globulin Ratio 0.9 L Lipase 23 Procalcitonin < 0.05 Chemistry Comments Influenza Type A Antigen Negative Influenza Type B Antigen Negative SARS-CoV-2 Antigen (Rapid) Negative Urine Specimen Description Voided Urine Color Yellow Urine Clarity Clear Urine pH 6.0 Urine Specific [place] 1.015 Urine Protein Negative Urine Glucose (UA) >=1000 H Urine Ketones Negative Urine Occult Blood Trace-intact Urine Nitrite Negative Urine Bilirubin Negative Urine Urobilinogen 0.2 Urine Leukocyte Esterase Negative Urine RBC None seen Urine WBC 0-4 Urine Squamous Epithelial Cells Few Urine Bacteria Few Urine Mucus None seen Urine Yeast Moderate Urine Culture Indicated Not ind Volume Urine Centrifuged 10 ml Urine Comment Medical Decision Making Additional information obtaine: old records Findings The patient presents with a complaint of diarrhea and intermittent abdominal pain. Be patient has had visits for the same in the past. His Labs were reviewed. His previous hospitalizations were reviewed. Who is hydrated in the emergency department. He had a benign examination. The patient will be discharged with attractions to follow up as an outpatient. Patience pulse oximetry was interpreted as normal and adequate. Differential Diagnosis gastritis, colitis, renal coli, uti Departure Disposition: HOME / SELF CARE / HOMELESS Impression: Primary Impression: Hypokalemia Additional Impression: Dehydration Discharge Instructions: Diarrhea, Adult Referrals: NO PRIMARY CARE PROVIDER (PCP) Prescriptions Potassium Chloride* (K-Dur*) 20 Meq Tab.prt.sr 1 TAB PO BID, #14 TAB Prov: MEHRDADLJACQUELYN PEREZ MD 03/16/25 ONDANSETRON ODT 4mg tablet (ONDANSETRON ODT) 4 Mg Tab.rapdis 1 TABLET PO Q6H PRN for nausea/vomiting, #12 TABLET Prov: JACQUELYN CARR MD 03/16/25 Signature Scribe Signature: none Attestation: The note accurately reflects work and decisions made by me.Jacquelyn Carr MD 03/18/25 11:38 JACQUELYN CARR MD Mar 16, 2025 06:40
[2025-03-16 06:42] LABS: MEAN PLATELET VOLUME 8.4 FL (7.4-10.4); RED CELL DISTRIBUTION WIDTH 16.3 % (11.5-14.5)
[2025-03-16 06:52] LABS: INFLUENZA TYPE A ANTIGEN RAPID NEGATIVE (Negative); INFLUENZA TYPE B ANTIGEN RAPID NEGATIVE (Negative)
[2025-03-16] MEDS ORDERED: OMEP20CA16 PO (06:56)
[2025-03-16] MEDS ORDERED: ACET-2971 PO (06:56)
[2025-03-16] MEDS ORDERED: OMEP40CA21 PO (06:56)
[2025-03-16] MEDS ORDERED: EMPA10TA PO (06:56)
[2025-03-16] MEDS ORDERED: ALBU18HF2 INH (06:56)
[2025-03-16 06:57] LABS: CREATININE 0.71 MG/DL (0.60-1.10); TOTAL CARBON DIOXIDE 27.6 MMOL/L (24-32); eCRCL 78 ML/MIN; eGFR > 90 ML/MIN
[2025-03-16] MEDS ORDERED: SUCR1TAB PO (07:09)
[2025-03-16] MEDS ORDERED: GABA-530 PO (07:09)
[2025-03-16] MEDS ORDERED: ATOR40TA PO (07:09)
[2025-03-16] MEDS ORDERED: DOCU-148 PO (07:09)
[2025-03-16] MEDS ORDERED: MIRT7.5T11 PO (07:09)
[2025-03-16] MEDS ORDERED: LOP25T PO (07:09)
[2025-03-16 08:09] LABS: LEUKOCYTE ESTERASE ,URINE NEGATIVE (Neg); NITRITES, URINE NEGATIVE (Neg); OCCULT BLOOD,URINE TRACE-INTACT (Neg)
[2025-03-16 08:14] LABS: UA COLLECTION TYPE VOIDED
[2025-03-16 08:16] LABS: MUCUS STRANDS NONE SEEN /LPF (Neg); SQUAMOUS EPITHELIAL CELL,UR FEW /LPF (FEW)
[2025-03-16 08:17] LABS: YEAST MODERATE /HPF (NEGATIVE)
[2025-03-16] MEDS ORDERED: POTA-207 PO (09:01)
[2025-03-16] MEDS ORDERED: ONDA-243 PO (09:01)
[2025-03-16] MEDS: potassium Cl 20 mEq SR tablet PO STA (10:04)
== END 2025-03-16 10:29 | disposition home or self-care (01) ==
LOC: ER 05:58
DX: E87.6 Hypokalemia (principal); E86.0 Dehydration; E03.9 Hypothyroidism, unspecified; E11.9 Type 2 diabetes mellitus without complications; F20.9 Schizophrenia, unspecified; I10 Essential (primary) hypertension; K21.9 Gastro-esophageal reflux disease without esophagitis; F41.9 Anxiety disorder, unspecified; I48.91 Unspecified atrial fibrillation; Z88.8 Allergy status to other drugs, medicaments and biological substances; Z79.899 Other long term (current) drug therapy; Z79.82 Long term (current) use of aspirin; Z79.84 Long term (current) use of oral hypoglycemic drugs; Z98.890 Other specified postprocedural states; Z20.822 Contact with and (suspected) exposure to COVID-19
CPT/HCPCS: 36415; 80053; 81001; 83690; 84145; 85025; 87804; 87811; 96360; 99283; J7030

== ENCOUNTER 2025-03-24 10:01 | Outpatient (CLI) | payer MEDICARE, MEDICAID ==
[~2025-03-24] VITALS: Ht 171.4 cm; Wt 90.7 kg
[~2025-03-24 10:01] MED LIST changes: +ACET-2971 PO; +ALBU18HF2 INH; -ATOR20TA PO; +ATOR40TA PO; +DOCU-148 PO; +EMPA10TA PO; +GABA-530 PO; +LOP25T PO; +MIRT7.5T11 PO; +OMEP20CA16 PO; +OMEP40CA21 PO; +ONDA-243 PO; +POTA-207 PO; +SUCR1TAB PO
[2025-03-24 10:37] LABS: TOTAL HEMOGLOBIN 15.2 G/dl (13.5-17.5)
[2025-03-24] MEDS: albuterol 2.5 MG/3 ML nebule NEB ONE (11:14)
[2025-03-24 11:26] VITALS: PULSE 85; RESP 15; O2SAT 96
[2025-03-24 11:39] VITALS: PULSE 83; RESP 14
--- NOTE | 2025-03-25 14:15 | PROCEDURE NOTE - Respiratory ---
Procedure Note-Respiratory Providers to CC Copies To 1: Farhat Lawrence MD Procedure Name: This is a complete pulmonary function study dated March 24, 2025. Hemoglobin measurement was done as part of the study. Spirometry measurements: Both the forced vital capacity and the FEV1 measurements are normal. The FEV1 ratio is slightly reduced. The flow rates are normal with the exception of some loss of the FEF 25 75%. After inhaled br onchodilator was administered, the terminal flow rate measurements show slight improvement. Spirometry documents very mild airway obstruction with some reversibility using inhaled bronchodilator. Lung volume measurements: All of the major lung volume determinations are normal. Lung diffusion measurement: The DLCO measurement is normal. It is noted the both the KVO measurement and the alveolar volume measurements are normal. The hemoglobin measurement is normal. Airway resistance measurement: The airway resistance is normal. Overall conclusion: This study shows very mild abnormality. There is evidence for very mild obstructive ventilatory defect with slight reversibility using inhaled bronchodilator. These findings suggest a diagnosis of mild asthma. This patient should continue to use bronchodilator medication. We have no previous studies for comparison. YOSI GATES MD Mar 25, 2025 14:15
== END 2025-03-24 23:59 | disposition home or self-care (01) ==
LOC: RT 10:01
PROVIDERS: ATTEND Internal Medicine Cardiovascular Disease
DX: R06.02 Shortness of breath (principal)
CPT/HCPCS: 85018; 94060; 94727; 94729; 94760

== ENCOUNTER 2025-04-10 15:35 | Emergency (ER) | payer OTHER, MEDICARE, MEDICAID ==
[~2025-04-10] VITALS: Ht 170.2 cm; Wt 89.9 kg
[~2025-04-10 15:35] MED LIST changes: -ALBU8HFA INH
[2025-04-10 15:48] VITALS: BP 121/67; PULSE 84; RESP 16; TEMP 97.4; O2SAT 98
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
[2025-04-10] MEDS ORDERED: LIDO-52 TOP (17:11)
[2025-04-12] MEDS ORDERED: ACET-1025 PO (21:02)
== END 2025-04-10 17:32 | disposition home or self-care (01) ==
LOC: ER 15:35
DX: R07.89 Other chest pain (principal); E03.9 Hypothyroidism, unspecified; E11.9 Type 2 diabetes mellitus without complications; F20.9 Schizophrenia, unspecified; K21.9 Gastro-esophageal reflux disease without esophagitis; F41.9 Anxiety disorder, unspecified; I10 Essential (primary) hypertension; I48.91 Unspecified atrial fibrillation; Z88.8 Allergy status to other drugs, medicaments and biological substances; Z79.82 Long term (current) use of aspirin; Z79.84 Long term (current) use of oral hypoglycemic drugs; Z79.899 Other long term (current) drug therapy
CPT/HCPCS: 71100; 99283